=== PATIENT | female | born 1995 | race Caucasian/White ===

== ENCOUNTER 2018-10-12 16:07 | Emergency (ER) | payer BC ==
--- NOTE | 2018-10-13 08:11 | US ---
First trimester obstetrical ultrasound: Multiple real-time images were obtained transvaginally. No intrauterine gestational sac is seen. Endometrial thickness measures 7 mm. Heterogeneous area is seen within the right ovary believed to be incidental measuring 1.6 cm. Ovaries are otherwise unremarkable. No myometrial abnormality is seen. Minimal free fluid is seen believed to be incidental. Impression: 1. No intrauterine gestational sac is seen. No adnexal abnormalities are identified. If patient has positive test findings could represent too early to visualize, miscarriage and unlikely nonvisualized ectopic . If beta hCGs continue to increase, repeat study could be considered in 11 days. Diagnostic code #2
--- NOTE | 2018-10-13 08:30 | EDM.PDOC ---
ED HPI GENERAL MEDICAL PROBLEM - General Chief Complaint: CRECHE ATTENDANT Problem Stated Complaint: BLEEDING Time Seen by Provider: 10/12/18 17:00 Source of Information: Reports: Patient, RN Notes Reviewed - History of Present Illness INITIAL COMMENTS - FREE TEXT/NARRATIVE: 23-year-old female comes in with mild vaginal spotting/bleeding states she started with some dark brown discharge yesterday and today it is more red, mild vaginal bleeding, has not been severe. There've been a few slight clots, no tissue. He has had mild lower abdominal and pelvic discomfort without radiation. No chest or shoulder pain. No shortness of breath. No unusual dizziness. No voiding symptomatology. She is 3 para 2. ED ROS GENERAL - Review of Systems Review Of Systems: See Below Constitutional: Denies: Fever, Chills, Diaphoresis HEENT: Reports: No Symptoms Respiratory: Denies: Shortness of Breath, Pleuritic Chest Pain, Cough Cardiovascular: Denies: Chest Pain GI/Abdominal: Reports: Abdominal Pain. Denies: Nausea, Vomiting : Reports: Other (Mild vaginal spotting and bleeding yesterday and today) Musculoskeletal: Denies: Shoulder Pain, Arm Pain, Back Pain Skin: Reports: No Symptoms Neurological: Denies: Dizziness ED EXAM - Physical Exam Exam: See Below General Appearance: Alert, No Apparent Distress Eye Exam: Bilateral Eye: PERRL Throat/Mouth: Normal Inspection, Normal Oropharynx Head: Atraumatic Neck: Supple, Full Range of Motion Respiratory/Chest: No Respiratory Distress, Lungs Clear, Normal Breath Sounds Cardiovascular: Regular Rate, Rhythm GI/Abdominal Exam: Soft, Tender. No: Guarding, Rebound (Very mild tenderness lower abdomen and pelvis) Neurological: Alert, Oriented, No Motor/Sensory Deficits Skin Exam: Warm, Dry, Normal Color Course - Orders/Labs/Meds Labs: Laboratory Tests 10/12/18 10/12/18 10/12/18 Range/Units 16:49 16:49 16:49 WBC 8.18 (3.98-10.04) K/mm3 RBC 4.40 (3.98-5.22) M/mm3 Hgb 12.2 (11.2-15.7) gm/L Hct 36.7 (34.1-44.9) % MCV 83.4 (79.4-94.8) fl MCH 27.7 (25.6-32.2) pg MCHC 33.2 (32.2-35.5) g/dl RDW Std Deviation 41.4 (36.4-46.3) fL Plt Count 301 (182-369) K/mm3 MPV 10.9 (9.4-12.3) fl Neut % (Auto) 50.8 (34.0-71.1) % Lymph % (Auto) 36.9 (19.3-51.7) % Hemphill % (Auto) 9.7 (4.7-12.5) % Eos % (Auto) 2.0 (0.7-5.8) Baso % (Auto) 0.5 (0.1-1.2) % Neut # (Auto) 4.16 (1.56-6.13) K/mm3 Lymph # (Auto) 3.02 (1.18-3.74) K/mm3 Hemphill # (Auto) 0.79 H (0.24-0.36) K/mm3 Eos # (Auto) 0.16 (0.04-0.36) K/mm3 Baso # (Auto) 0.04 (0.01-0.08) K/mm3 HCG, Qual Positive H (NEGATIVE) HCG, Quant 34.0 mIU/mL - Re-Assessments/Exams Free Text/Narrative Re-Assessment/Exam: 10/13/18 08:27 ECG did come back positive however quantitative hCG only 34. Pelvic ultrasound does not show an intrauterine gestational sac. Her genus areas seen within the right ovary believed to be incidental measuring 1.6 cm. See radiology report for details. Discussed with patient that there is somewhat high probability that she is in the process of miscarrying but also may just be too early to show on ultrasound. ECG that low more strongly suspect miscarriage. Have advised OB follow-up in about 5 days early this next week. Discharge instructions as documented. Departure - Departure Time of Disposition: 18:45 Disposition: Home, Self-Care 01 Condition: Fair Clinical Impression: Threatened - Discharge Information Referrals: PCP,None [Primary Care Provider] - Forms: ED Department Discharge
== END 2018-10-12 18:32 | disposition home or self-care (01) ==
LOC: JD.ED 16:07
DX: O20.0 Threatened abortion (principal); Z3A.00 Weeks of gestation of pregnancy not specified
CPT/HCPCS: 36415; 76817; 76817-26; 84702; 84703; 85025; 99284-25

== ENCOUNTER 2022-02-08 22:39 | Inpatient (IN) | payer BC ==
[2022-02-09] MEDS: Lactated Ringers 1,000 ML IV SCH ×2 (00:30→06:01)
[2022-02-09] MEDS ORDERED: Sodium Chloride 0.9% 10 ML Syringe FLUSH PRN ×2 (00:31→05:07)
[2022-02-09] MEDS ORDERED: Citric Acid/Sodium Citrate Solution 30 ML Cup PO ONE (05:07)
[2022-02-09] MEDS ORDERED: ceFAZolin 2 GM in Sodium Chloride 0.9% 50 ML IV ONE (05:07)
[2022-02-09] MEDS ORDERED: Metoclopramide 10 MG/2 ML SDV IVPUSH ONE (05:07)
[2022-02-09] MEDS ORDERED: Oxytocin/Lactated Ringers 10 UNIT/1,000 ML BAG IV SCH (05:15)
[2022-02-09] MEDS ORDERED: Lactated Ringers 1,000 ML IV SCH (05:15)
[2022-02-09] MEDS ORDERED: diphenhydrAMINE 50 MG/ML SDV IVPUSH PRN ×2 (07:12→10:03)
[2022-02-09] MEDS ORDERED: Ondansetron 4 MG/2 ML SDV IVPUSH PRN (07:12)
[2022-02-09] MEDS ORDERED: Meperidine 50 MG/ML Vial IVPUSH PRN (07:12)
[2022-02-09] MEDS ORDERED: fentaNYL 100 MCG/2 ML SDV IVPUSH PRN (07:12)
[2022-02-09] MEDS ORDERED: Morphine PF 10 MG/10 ML SDV ONE (07:27)
[2022-02-09] MEDS ORDERED: ceFAZolin 1 GM Vial ONE (07:27)
[2022-02-09] MEDS ORDERED: Ondansetron 4 MG/2 ML SDV ONE (07:27)
[2022-02-09] MEDS ORDERED: Ketorolac 30 MG/ML SDV ONE (07:27)
[2022-02-09] MEDS ORDERED: ePHEDrine 50 MG/ML SDV ONE (07:29)
[2022-02-09] MEDS ORDERED: Phenylephrine 1% 10 MG/ML SDV ONE (07:29)
[2022-02-09] MEDS ORDERED: Oxytocin 10 Units/1 ML SDV ONE (07:31)
[2022-02-09] MEDS ORDERED: Sodium Chloride 0.9% 10 ML Syringe FLUSH SCH ×2 (09:00)
[2022-02-09] MEDS ORDERED: Dextrose 5%-Lactated Ringers 1,000 ML IV SCH (10:03)
[2022-02-09] MEDS ORDERED: Acetaminophen/oxyCODONE 325-5 MG Tab PO PRN (10:03)
[2022-02-09] MEDS ORDERED: Ondansetron 4 MG/2 ML SDV IV PRN (10:03)
[2022-02-09] MEDS ORDERED: ePHEDrine 50 MG/ML SDV IVPUSH PRN (10:03)
[2022-02-09] MEDS ORDERED: Naloxone 0.4 MG/ML SDV IVPUSH PRN (10:03)
[2022-02-09] MEDS ORDERED: Lactated Ringers 500 ML IV ONE (13:22)
[2022-02-09] MEDS: Ketorolac 30 MG/ML SDV IVPUSH SCH ×2 (14:05→20:29)
[2022-02-09] MEDS: Docusate Sodium 100 MG Cap PO PRN (20:30)
[2022-02-09] MEDS: Simethicone 80 MG Tab.Chew PO PRN (20:41)
[2022-02-10] MEDS: Ketorolac 30 MG/ML SDV IVPUSH SCH (02:30)
[2022-02-10] MEDS: Simethicone 80 MG Tab.Chew PO PRN (04:30)
[2022-02-10] MEDS: Docusate Sodium 100 MG Cap PO PRN ×2 (08:26→20:45)
[2022-02-10] MEDS: Ibuprofen 600 MG Tab PO PRN ×2 (08:26→14:44)
[2022-02-10] MEDS: Acetaminophen/oxyCODONE 325-5 MG Tab PO PRN ×2 (14:43→20:44)
[2022-02-11] MEDS: Acetaminophen/oxyCODONE 325-5 MG Tab PO PRN ×3 (01:14→14:13)
[2022-02-11] MEDS: Ibuprofen 600 MG Tab PO PRN ×2 (01:15→11:30)
[2022-02-11] MEDS: Docusate Sodium 100 MG Cap PO PRN (07:54)
== END 2022-02-11 14:40 | disposition home or self-care (01) | DRG 540 ==
LOC: JD.OBCHECK 22:39 → JD.OB 22:44 → JD.OBCHECK 02-09 05:07 → JD.OB 02-09 05:08
PROVIDERS: ADMIT Obstetrics & Gynecology; ATTEND Obstetrics & Gynecology
PROC: 10D00Z1 Extraction of Products of Conception, Low, Open Approach (ICD-10-PCS; principal; 2022-02-09)
DX: O34.211 Maternal care for low transverse scar from previous cesarean delivery (principal); Z37.0 Single live birth; Z3A.39 39 weeks gestation of pregnancy; O99.02 Anemia complicating childbirth; D64.9 Anemia, unspecified; Z87.891 Personal history of nicotine dependence
CPT/HCPCS: 36415; 59025; 85025; 85027; 86592; 86850; 86900; 86901; A9270-GY; J0690; J1200; J1885; J2274; J2370; J2405; J2590; J2765; J3490; J7120; J7121